=== PATIENT | female | born 1965 | race African-American/Black ===

== ENCOUNTER 2021-02-02 10:33 | Outpatient (CLI) | payer OTHER ==
--- NOTE | 2021-02-02 11:53 | Mammography Report ---
BILATERAL DIGITAL SCREENING MAMMOGRAM WITH CAD WITH TOMOSYNTHESIS HISTORY: Screening mammogram. TECHNIQUE: Routine digital mammographic imaging performed. This examination was interpreted with stella robin benefit of Computer-aided Detection analysis. Tomosynthesis images were acquired and reviewed. COMPARISON: None available. This will serve as a new baseline exam. FINDINGS: Breast Density: heterogeneously dense breast parenchymal pattern which somewhat lessens the sensitivi ty of the evaluation. Digital CC and MLO views demonstrate focal asymmetry within the right inferior posterior breast. No suspicious findings within the left breast. IMPRESSION: Right inferior posterior breast focal asymmetry for which additional mammographic views and possible ultrasound is recommended. BIRADS 0-Incomplete: Needs additional imaging evaluation NOTE: WE WILL RECALL THE PATIENT FOR THIS ADDITIONAL EVALUATION. FURTHER INFORMATION: According to the [employer], yearly mammograms are recommend ed starting at age 40 and continuing as long as a woman is in good health. Clinical Breast Exams shou ld be part of a periodic health exam-about every 3 years for women in their 20s and 30s and every yea r for women 40 and over. Breast self exam is an option for women starting in their 20s. Any breast ch terri noted on a breast self exam should be reported promptly to the patient's healthcare provider. Br east MRI is recommended for women with an approximately 20-25% or greater lifetime risk of breast can cer, including women with a strong family history of breast or ovarian cancer and women who have been treated for Hodgkin's disease. A negative Mammography report should not discourage follow up or biopsy of a clinically significant f inding and/or abnormality. Dense breast tissue may obscure small neoplasms. The patient will be entered into a reminder system with a target due date for the next screening mamm ogram. Screening Signer Name: Rogelio Keith MD Signed: 02/02/2021 11:48 AM Workstation Name: [id number]
== END 2021-02-02 10:34 | disposition home or self-care (01) ==
LOC: MAMMO 10:33
PROVIDERS: ATTEND Obstetrics & Gynecology
DX: Z12.31 Encounter for screening mammogram for malignant neoplasm of breast (principal); N64.89 Other specified disorders of breast
CPT/HCPCS: 77067

== ENCOUNTER 2021-07-13 08:38 | Outpatient (CLI) | payer OTHER ==
--- NOTE | 2021-07-13 09:55 | Mammography Report ---
DIGITAL DIAGNOSTIC MAMMOGRAM WITH CAD CONVENTIONAL, 07/13/2021 CLINICAL INFORMATION / INDICATION: Abnormal screening mammogram on the right in January TECHNIQUE: Digital right mammographic imaging was performed. Spot compression views were obtained. This examination was interpreted with the benefit of Computer-aided Detection analysis. COMPARISON: Screening mammogram 02/02/2021 FINDINGS: Breast Density: The breasts are heterogeneously dense, which may obscure small masses. Density in the posterior breast improves on cc spot compression views and is stable on lateral views. This is thought likely an area of asymmetric breast tissue. IMPRESSION: No mammographic evidence of malignancy. Follow up recommendation: No additional evaluation is felt necessary on the right. Patient reports a history of intermittent long-term left breast pain. Clinical follow-up of that symptom is suggested. If there is continued concern, ultrasound could be performed. Otherwise recommend return to routine m ammographic schedule in 6 months bilaterally. BI-RADS Category 2: BENIGN. A "normal" or negative report should not discourage follow up or biopsy of a clinically significant f inding. A written summary of these findings will be mailed to the patient. The patient will be entered into a mammography reporting system which will generate a reminder letter for the patient's next appointmen t at the appropriate interval. According to the [employer], yearly mammograms are recommended starting at age 40 and continuing as long as a woman is in good health. Breast MRI is recommended for women with an pauline roximately 20-25% or greater lifetime risk of breast cancer, including women with a strong family his tory of breast or ovarian cancer and women who have been treated for Hodgkin's disease. Signer Name: Estevan Cortes MD Signed: 07/13/2021 9:51 AM Workstation Name: [id number]
== END 2021-07-13 08:39 | disposition home or self-care (01) ==
LOC: MAMMO 08:38
PROVIDERS: ATTEND Obstetrics & Gynecology
DX: N64.4 Mastodynia (principal)
CPT/HCPCS: 77066